=== PATIENT | female | born 1955 | race Caucasian/White ===

== ENCOUNTER → 2020-05-01 | Outpatient (CLI) | payer BC ==
--- NOTE | 2020-05-01 15:51 | KCIC ---
Examination: MRI of the left knee without contrast HISTORY: History of meniscal tear left knee COMPARISON: None available Technique: Multiplanar, multisequence MR imaging of the left knee was performed without contrast FINDINGS: The anterior cruciate ligament, posterior cruciate ligament appear intact. There is complex appearing tear of the posterior horn of the medial meniscus. There is horizontal increased signal identified in the anterior horn of the lateral meniscus extending to superior inferior articular surface likely tear with a small 4 mm parameniscal cyst extending laterally from the anterior horn of the lateral meniscus best visualized on series 8 image 17. The medial collateral ligament appears intact. There is mild increased T2 signal identified about the medial collateral ligament with the lateral collateral ligamentous complex appearing the fibular collateral ligament, biceps femoris tendon, popliteus tendon appear intact. The extensor mechanism is intact. Small knee joint effusion is identified. There is moderate trabecular edema identified in the medial tibial plateau with subtle low T1 signal and sagittal high T2 signal in the proximal medial tibia could be impaction nondisplaced fracture. The medial retinaculum, lateral retinaculum appears intact. Small popliteal cyst is identified. Moderate increased T2 signal/edema identified about the knee joint. IMPRESSION: 1. Complex tear of the posterior horn of the medial meniscus. 2. Horizontal increased signal identified in the anterior horn of the lateral meniscus extending to superior and inferior articular surface likely tear with a small 4 mm parameniscal cyst extending laterally from the anterior horn of the lateral meniscus best visualized on series 8 image 17. 3. Moderate trabecular edema identified in the medial tibial plateau with subtle low T1 signal and sagittal high T2 signal in the proximal medial tibia could be impaction nondisplaced fracture. 4. Increased T2 signal identified about the medial collateral ligament probably sprain or secondary to injury. 5. Small knee joint effusion with a small popliteal cyst. Electronically signed by: Federico Reed MD (05/01/2020 3:48 PM) [id number]
== END | disposition home or self-care (01) ==
LOC: KCIC MRI 14:40
PROVIDERS: ATTEND Physician Assistant
DX: S83.242D Other tear of medial meniscus, current injury, left knee, subsequent encounter (principal); M71.22 Synovial cyst of popliteal space [Baker], left knee; M25.462 Effusion, left knee; X58.XXXD Exposure to other specified factors, subsequent encounter
CPT/HCPCS: 73721

== ENCOUNTER → 2020-05-18 | Outpatient (CLI) | payer BC | END | disposition home or self-care (01) | LOC: LAB 14:12 | PROVIDERS: ATTEND Orthopaedic Surgery | DX: Z01.818 Encounter for other preprocedural examination (principal); Z11.59 Encounter for screening for other viral diseases | CPT/HCPCS: U0003-CS ==

== ENCOUNTER 2020-05-22 09:16 | Day surgery (SDC) | payer BC ==
[~2020-05-22] VITALS: Ht 152.4 cm; Wt 96.2 kg
[~2020-05-22 09:16] MED LIST: BUPIVACAINE MPF 0.25% 30 ML VIAL. ONE; EPINEPHrine VIAL 30 MG/30 ML VIAL ONE; HYDROmorphone 2 MG/ML VIAL IV PRN; IV RINGERS,LACTATED 1000ML 1,000 ML IV SCH; LIDOCAINE 1% PF 2 ML VIAL. ID PRN; MORPHINE SULFATE 2 MG/ML VIAL. IV PRN; ONDANSETRON PF 4 MG/2 ML VIAL. IV PRN; PROCHLORPERAZINE 10 MG/2 ML VIAL. IV PRN; fentaNYL PF VIAL 100 MCG/2 ML VIAL IV PRN
[2020-05-22] MEDS ORDERED: LISI-130 PO (09:18)
[2020-05-22] MEDS ORDERED: AMLO5TAB10 PO (09:19)
[2020-05-22] MEDS ORDERED: NAPR500T8 PO (09:19)
[2020-05-22] MEDS ORDERED: LIDOCAINE 1% PF 5 ML VIAL. ONE (09:20)
[2020-05-22] MEDS ORDERED: PROPOFOL 10 MG/ML (20ML) VIAL. IV ONE (09:20)
[2020-05-22] MEDS ORDERED: fentaNYL PF VIAL 100 MCG/2 ML VIAL ONE (09:21)
[2020-05-22] MEDS ORDERED: BUPIVACAINE-EPI 0.25%-1:200000 MPF 30 ML VIAL. ONE (09:58)
[2020-05-22] MEDS ORDERED: ceFAZolin 2GM PREMIX 2 GM/50 ML BAG IV ONE (10:00)
[2020-05-22] MEDS ORDERED: DEXAMETHASONE SOD PHOS 4 MG/ML VIAL ONE (10:11)
[2020-05-22] MEDS ORDERED: ONDANSETRON PF 4 MG/2 ML VIAL. ONE (10:11)
[2020-05-22] MEDS ORDERED: ePHEDrine PF IN SALINE 50 MG/10 ML SYRINGE. IV ONE (10:22)
[2020-05-22] MEDS ORDERED: SEVOFLURANE 61 TO 120 MINUTES. IH ONE (10:39)
[2020-05-22] MEDS ORDERED: PHENYLEPHRINE in 0.9% NACL PF 1 MG/10 ML SYRINGE. IV ONE (10:39)
--- NOTE | 2020-05-22 10:57 | PDOC4 ---
Operative Note Operative Note Date of Procedure: May 22, 2020 Preoperative Diagnosis: left knee medial and lateral meniscus tears Postoperative Diagnosis: * complex tear of lateral meniscus, current injury, left knee, initial encounter S83.272A * complex tear of medial meniscus, current injury, left knee, initial encounter S83.232A Procedures Performed: left knee arthroscopy, surgical, with meniscectomy, medial AND lateral, including meniscal shaving, including debridement/shaving of articular cartilage (chondroplasty) CPT 07861 Surgeon: José Miguel Crawford MD Nursing Admin: KATH Mtz Anesthesia: General Estimated Blood Loss: 5 mL Specimens: none Drains: none Complications: none Tourniquet time: 25 minutes at 300 mm Hg Indications for Procedure: The patient is a 64-year-old with left knee pain, unrelieved with nonoperative treatment. Exam and MRI are consistent with a meniscus tear. We talked about the risks and benefits of proceeding with an arthroscopic procedure. We talked about potential risks of ongoing pain, progressive arthritis, bleeding, infection, blood clots, or other potential surgical or anesthetic complications. All of the patient's questions about surgery were answered and they desired to proceed. Written consent was obtained. Description of Operation: The patient was identified in the preoperative holding area. The correct left knee was marked by me. The patient was taken to the operating room, where a general anesthetic was used. Preoperative antibiotics were given intravenously. A time-out procedure was performed. A tourniquet was placed on the upper thigh. Local anesthetic 20 mL of 0.25% bupivacaine was injected using sterile technique into the knee joint. The limb was prepared circumferentially with ChloraPrep solution and sterile waterproof arthroscopy drapes were applied. The limb was exsanguinated with an Esmarch bandage and the tourniquet was inflated. Lateral and medial arthroscopy portals were established. The medial meniscus showed a complex unrepairable tear with unstable flaps. A meniscectomy was performed with basket forceps and the motorized shaver back to a smooth stable base, and the resection tapered into the middle one-third of the meniscus.The medial tibiofemoral joint showed chondromalacia Outerbridge grade III, and a shaving chondroplasty was performed removing unstable fragments of cartilage with the shaver.The intercondylar notch was free of loose bodies, and the ACL was intact. The lateral tibiofemoral joint showed a complex unrepairable meniscus tear, and a meniscectomy was performed with basket forceps and the motorized shaver back to a smooth stable base.The lateral articular surfaces showed chondromalacia Outerbridge grade II, so a shaving chondroplasty was performed removing loose unstable fragments of articular cartilage. The patellofemoral joint showed chondromalacia Outerbridge grade III, and a shaving chondroplasty was performed removing unstable fragments of cartilage with the shaver. The suprapatellar pouch, medial and lateral gutters were free of loose bodies. Copious irrigation was used to drain all meniscal and chondral fragments, and the knee was drained of fluid. The portals were closed with #3-0 Prolene interrupted sutures. Additional local anesthetic, 30 mL of 0.25% bupivacaine with epinephrine was injected. A bulky sterile dressing was applied and the tourniquet was released. Needle and sponge counts were correct and there were no apparent complications. JOSÉ MIGUEL CRAWFORD MD May 22, 2020 10:57
[2020-05-22] MEDS ORDERED: HYDR-2765 PO (11:20)
[2020-05-22] MEDS ORDERED: PROM25TA10 PO (11:23)
[2020-05-22] MEDS ORDERED: ASPI325T8 PO (11:25)
[2020-05-22 11:49] VITALS: BP 149/82
== END 2020-05-22 13:43 | disposition home or self-care (01) ==
LOC: SURG 09:16
PROVIDERS: ATTEND Orthopaedic Surgery
DX: S83.272A Complex tear of lateral meniscus, current injury, left knee, initial encounter (principal); S83.232A Complex tear of medial meniscus, current injury, left knee, initial encounter; M17.12 Unilateral primary osteoarthritis, left knee; I10 Essential (primary) hypertension; E78.5 Hyperlipidemia, unspecified; E66.9 Obesity, unspecified; Z68.41 Body mass index [BMI] 40.0-44.9, adult; X58.XXXA Exposure to other specified factors, initial encounter; Y93.89 Activity, other specified; Y92.89 Other specified places as the place of occurrence of the external cause; Y99.8 Other external cause status; Z98.890 Other specified postprocedural states; Z79.899 Other long term (current) drug therapy
CPT/HCPCS: 29880; A7015; J0171; J0690; J1100; J2370; J2405; J2704; J3010; J3490

== ENCOUNTER 2020-06-02 06:43 | Inpatient (IN) | payer BC ==
[2020-06-02] VITALS (13 sets, daily range): BP systolic 103–154; BP diastolic 62–100
[~2020-06-02] VITALS: Ht 154.9 cm; Wt 95.0 kg
[~2020-06-02 06:43] MED LIST changes: +AMLO5TAB10 PO; +ASPI325T8 PO; -BUPIVACAINE MPF 0.25% 30 ML VIAL. ONE; -EPINEPHrine VIAL 30 MG/30 ML VIAL ONE; +HYDR-2765 PO; -HYDROmorphone 2 MG/ML VIAL IV PRN; -IV RINGERS,LACTATED 1000ML 1,000 ML IV SCH; -LIDOCAINE 1% PF 2 ML VIAL. ID PRN; +LISI-130 PO; -MORPHINE SULFATE 2 MG/ML VIAL. IV PRN; +NAPR500T8 PO; -ONDANSETRON PF 4 MG/2 ML VIAL. IV PRN; -PROCHLORPERAZINE 10 MG/2 ML VIAL. IV PRN; +PROM25TA10 PO; -fentaNYL PF VIAL 100 MCG/2 ML VIAL IV PRN
[2020-06-02] MEDS ORDERED: ZOLPIDEM 5 MG TABLET. PO PRN (08:15)
[2020-06-02] MEDS ORDERED: ALBUTEROL SULFATE 2.5 MG/3 ML NEBU. NEB PRN (08:15)
[2020-06-02] MEDS ORDERED: ONDANSETRON PF 4 MG/2 ML VIAL. IV PRN (08:15)
[2020-06-02] MEDS ORDERED: diphenhydrAMINE 50 MG/ML VIAL IVP PRN (08:15)
[2020-06-02] MEDS ORDERED: MAG HYDROX/ALUMINUM HYD/SIMETH 30 ML ORAL.SUSP PO PRN (08:15)
[2020-06-02] MEDS ORDERED: guaiFENesin ORAL 200 MG/10 ML LIQUID. PO PRN (08:15)
[2020-06-02] MEDS ORDERED: LORazepam 0.5 MG TABLET PO PRN (08:15)
[2020-06-02] MEDS ORDERED: ACETAMINOPHEN 325 MG TABLET. PO PRN (08:15)
--- NOTE | 2020-06-02 08:15 | PDOC1 ---
History and Physical Date of Admission Date of Admission 06/02/2020 Identification/Chief Complaint Chief Complaint My chest hurts Source Source: Chart review, Patient History of Present Illness History of Present Illness Patient is a 64-year-old female with past medical history of essential hypertension obesity who was in her usual state of health until earlier in the month when apparently she suffered a meniscal tear which was operated. She had a left knee arthroscopy with medial and lateral meniscectomy. This was on May 22, 2020. After her operation patient has been more sedentary than usual she has been taking aspirin nevertheless yesterday she presented right-sided chest pain under her breast which prompted consultation with the local emergency department. She was evaluated and found to have bilateral pulmonary emboli and sent to our institution for further treatment. The patient is in no acute distress she is not requiring oxygen at the present time she is able to speak in full sentences her chest discomfort does not seem to be as bothersome as her knee pain. She also has back pain but no alarming signs like weight loss no saddle anesthesia no paresthesias no signs of cauda equina. Plan of care has been explained in detail to the patient and her who is at bedside no other complaints other than her aches and pains. She denies any syncopal episodes no neurological deficits no dysphagia odynophagia no palpitations no lightheadedness no shortness of breath has been reported no abdominal pain no nausea vomiting or diarrhea Patient will be admitted for further evaluation and treatment Past Medical History Past Medical History No significant past medical history Past Surgical History Past Surgical History: Arthroscopy, No pertinent history (Arthroscopy) Family History Family History: No Significant Social History Smoke: No ALCOHOL: none Drugs: None Allergies Allergies Allergies Coded Allergies Type Severity Reaction Last Updated Verified No Known Drug Allergies 05/22/20 No ROS Review of System CONSTITUTIONAL: No fever or chills EYES: No recent changes SKIN: No rash or itching CARDIOVASCULAR: No chest pain, syncope, palpitations, or edema RESPIRATORY: No SOB or cough GASTROINTESTINAL: No nausea, vomiting or abdominal pain NEUROLOGICAL: No headaches or weakness ENDOCRINE: No cold or heat intolerance GENITOURINARY: No urgency or frequency of urination MUSCULOSKELETAL: No back pain or joint pain LYMPHATICS: No enlarged lymph nodes PSYCHIATRIC: No anxiety or depression Physical Exam Physical Exam GEN.: No apparent distress. Alert and oriented. HEENT: Head is normocephalic, atraumatic NECK: Supple. LUNGS: Clear to auscultation. HEART: RRR, S1, S2 present. Peripheral pulses intact ABDOMEN: Soft, nontender. Positive bowel sounds. EXTREMITIES: Without any cyanosis. NEUROLOGIC: Normal speech, normal tone PSYCHIATRIC: Normal affect, normal mood. SKIN: No ulcerations VTE Prophylaxis Ordered VTE Prophylaxis Devices: No VTE Pharmacological Prophylaxi: Yes Assessment/Plan Assessment/Plan Bilateral pulmonary emboli as per report, no imaging are available at the present time for review Chest pain pleuritic in nature secondary to pleural effusion Cannot rule out a an infectious process but given the quite benign history no cough no fever no sputum production very unlikely Obesity with a BMI of 39 Essential hypertension Uncontrolled pain Status post arthroscopy secondary to complex meningeal tear over the left knee Plan Pain management Resume home medication Echocardiogram to assess for right-sided heart strain Further recommendations will be based on the clinical course Full anticoagulation with Lovenox LIDIA GUIDO MD Jun 02, 2020 08:15
[2020-06-02] MEDS ORDERED: PROMETHAZINE 12.5 MG TABLET. PO PRN (08:30)
[2020-06-02] MEDS ORDERED: NAPROXEN 500 MG TABLET PO PRN (08:30)
[2020-06-02] MEDS: ASPIRIN 325 MG TABLET PO SCH (08:33)
[2020-06-02] MEDS: LISINOPRIL 20 MG TABLET PO SCH (08:33)
[2020-06-02] MEDS: HYDROmorphone 2 MG/ML VIAL IV PRN ×2 (08:34→18:27)
[2020-06-02] MEDS: amLODIPine BESYLATE 5 MG TABLET PO SCH (08:34)
[2020-06-02] MEDS ORDERED: ANTI-COAG MONITOR BY PHARMACY. MC PRN (11:00)
--- NOTE | 2020-06-02 12:27 | CONS ---
DATE OF CONSULTATION: 06/02/2020 PULMONARY CONSULTATION ATTENDING PHYSICIAN: Anselmo Murillo MD REASON FOR CONSULTATION: Pulmonary embolism and DVT. HISTORY OF PRESENT ILLNESS: The patient is a 64-year-old obese female who has no significant tobacco history. She had an arthroscopic surgery done about 2 weeks ago on 05/22. She stated a week later, she started to have pain in her right leg. She then had progression of pain and started to have shortness of breath and chest pain on the right side this weekend. She did not have any lightheadedness or dizziness. No syncopal episode. No headache, no nausea, vomiting, no diarrhea, and no dysuria. The patient had imaging study done yesterday, which was reviewed by me. The patient had bilateral pulmonary embolism including lobar and segmental branches bilaterally. There was sparing of main pulmonary trunk. There was airspace disease in the right lower lobe suggestive of infarction. She had no symptoms of pneumonia. The patient has no known cancers. She has been immobile since the surgery. Her mother had DVT and PE at an advanced age. I have been asked to see her for further evaluation. PAST MEDICAL HISTORY: Essentially unremarkable except for morbid obesity. PAST SURGICAL HISTORY: Arthroscopic surgery. FAMILY HISTORY: Mother had PE and DVT at her advanced age. SOCIAL HISTORY: Nonsmoker. ALLERGIES: None. MEDICATIONS: Reviewed as listed in the MRAD including Lovenox and Eliquis. REVIEW OF SYSTEMS: Twelve-point system obtained. Pertinent positives discussed in my history of present illness, otherwise noncontributory. All systems that were negative were reviewed as well. PHYSICAL EXAMINATION: VITAL SIGNS: Reviewed. Blood pressure is 103 to 116 systolic. Pulse ox 95% on 2 liters, afebrile. NECK: Supple. LUNGS: Clear. CARDIOVASCULAR: With a regular rate. ABDOMEN: Soft, nontender. EXTREMITIES: With surgical incision on the left knee and some pain and tender in the right knee. LABORATORY DATA: With Santana virus not detected. IMPRESSION: 1. Acute pulmonary embolism and right lower extremity deep vein thrombosis secondary to immobilization from recent left knee arthroscopic surgery. She has no known cancers and her obesity is another risk factor. Her mother had pulmonary embolism and DVT at an advanced age. She is hemodynamically stable. 2. Right lower lobe pulmonary infarction. Clinically, no signs of pneumonia. 3. Underlying morbid obesity. 4. No significant tobacco history. RECOMMENDATIONS: 1. Discussed with the patient and her . At this time, we will continue minimum of 3 months of anticoagulation. Her risk factors appears to be reversible. 2. Will repeat venous Dopplers and CTA chest in 6 weeks. 3. She can be switched to p.o. Eliquis, which she will be initiating from tomorrow. 4. 6-minute walk test at the time of discharge. 5. The patient has indicated a week from now she is scheduled to go somewhere in [place] for 3-hour drive. I have instructed her that as long as she takes a break every hour and stretches herself and remains on Eliquis she should be safe. 6. Discussed with RN. The patient could be transferred out of the ICU. YOLANDA RECIO MD DR: TERRY/randi JOB#: [id number] / [id number]
--- NOTE | 2020-06-02 12:35 | PDOC2 ---
CONSULT Date of Consult Date of Consult DATE: 06/02/20 TIME: 12:25 Reason for Consult Reason for Consult: Followup from Left Knee Arthroscopy with medial and lateral meniscectomy. on 05/22/2020 Referring Physician Referring Physician: Dr MONTERO Identification/Chief Complaint Chief Complaint No complaint of pain at this time in knee. Source Source: Caregiver, Chart review, Patient History of Present Illness Reason for Visit: Bilateral pulmonary emboli Past Medical History Pulmonary: Pulmonary embolus Musculoskeletal: Other (bilateral meniscus tears prior to arthroscopy) Past Surgical History Past Surgical History: Arthroscopy, No pertinent history (Arthroscopy) Family History Family History: No Significant Social History No ALCOHOL: none Drugs: None Current Medications Current Medications Current Medications Ondansetron HCl (Zofran) 4 mg PRN Q4HRS PRN IV NAUSEA/VOMITING; Start 06/02/20 at 08:15 Zolpidem Tartrate (Ambien) 5 mg PRN QHS PRN PO INSOMNIA; Start 06/02/20 at 08:15 Acetaminophen (Tylenol) 650 mg PRN Q4HRS PRN PO TEMP OVER 100.4F OR MILD PAIN; Start 06/02/20 at 08:15 Al Hydroxide/Mg Hydroxide (Mylanta Plus Xs) 30 ml PRN DAILY PRN PO HEARTBURN / GAS; Start 06/02/20 at 08:15 Diphenhydramine HCl (Benadryl) 25 mg PRN Q4HRS PRN IVP ITCHING; Start 06/02/20 at 08:15 Docusate Sodium (Colace) 100 mg PRN BID PRN PO HARD STOOLS; Start 06/02/20 at 08:15 Albuterol Sulfate (Ventolin Neb Soln) 2.5 mg PRN Q4HRS PRN NEB SHORTNESS OF BREATH; Start 06/02/20 at 08:15 Guaifenesin (Robitussin) 200 mg PRN Q4HRS PRN PO COUGH; Start 06/02/20 at 08:15 Lorazepam (Ativan) 0.5 mg PRN Q4HRS PRN PO ANXIETY / AGITATION; Start 06/02/20 at 08:15 Hydromorphone HCl (Dilaudid) 1 mg PRN Q2HRS PRN IV SEVERE PAIN 7-10 Last administered on 06/02/20at 08:34; Start 06/02/20 at 08:15 Enoxaparin Sodium (Lovenox 100mg Syringe) 100 mg Q12HR SQ Last administered on 06/02/20at 08:36; Start 06/02/20 at 09:00; Stop 06/02/20 at 10:43; Status DC Amlodipine Besylate (Norvasc) 5 mg DAILY PO Last administered on 06/02/20at 08:34; Start 06/02/20 at 09:00 Aspirin (Zara Aspirin) 325 mg DAILY PO Last administered on 06/02/20at 08:33; Start 06/02/20 at 09:00 Acetaminophen/ Hydrocodone Bitart (Lortab 7.5/325) 1 tab PRN Q6HRS PRN PO MODERATE PAIN; Start 06/02/20 at 08:15 Lisinopril (Prinivil) 40 mg DAILY PO Last administered on 06/02/20at 08:33; Start 06/02/20 at 09:00 Naproxen (Naprosyn) 500 mg PRN BID PRN PO INFLAMMATION; Start 06/02/20 at 08:30 Promethazine HCl (Phenergan) 25 mg PRN Q6HRS PRN PO NAUSEA/VOMITING; Start 06/02/20 at 08:30 Apixaban (Eliquis) 10 mg BID PO ; Start 06/03/20 at 21:00; Stop 06/10/20 at 09:01 Apixaban (Eliquis) 5 mg BID PO ; Start 06/10/20 at 21:00 Info (Anti-Coagulation Monitoring By Pharmacy) 1 each PRN DAILY PRN MC SEE COMMENTS; Start 06/02/20 at 11:00 Active Scripts Active Reported Aspirin 325 Mg Tablet 1 Tab PO DAILY 30 Days Promethazine Hcl 25 Mg Tablet 1 Tab PO PRN Q6HRS 2 Days Hydrocodone-Apap 7.5-325 (Hydrocodone Bit/Acetaminophen) 1 Tab Tablet 1-2 Tab PO PRN Q6HRS PRN Naproxen 500 Mg Tablet. 1 Tab PO PRN 1-2XD PRN Amlodipine Besylate 5 Mg Tablet 5 Mg PO DAILY Lisinopril 40 Mg Tablet 40 Mg PO DAILY Allergies Allergies: Coded Allergies: No Known Drug Allergies (Unverified , 05/22/20) Physical Exam General: Alert, Oriented X3, Cooperative, No acute distress Extremities: No clubbing, No cyanosis, Normal pulses MUSCULOSKELETAL: Other (sutures in place from wound closure from arthroscopy, mild swelling around the incision sites with no redness or erythema or drainage.) Vitals VITALS Vital Signs Date Time Temp Pulse Resp B/P (MAP) Pulse Ox O2 Delivery O2 Flow Rate FiO2 06/02/20 11:00 74 21 103/63 (76) 95 Nasal Cannula 2.0 06/02/20 07:00 99.7 99.7 Assessment/Plan Assessment/Plan Patient postop from Left Knee Arthroscopy on 05/22/[address] Crawford motor and sensation intact distally no complaints of pain at this time RN will remove sutures and place dressing as patient had office appt scheduled tomorrow. PT eval and treat. Icing and elevation of knee as needed. VIVEK NO DELINQUENCY COUNSELOR Jun 02, 2020 12:35
[2020-06-02 14:56] LABS: CREATININE 0.9 mg/dL (0.6-1.0); GFR 63.4; MAGNESIUM 2.1 mg/dL (1.8-2.4); POTASSIUM 3.9 mmol/L (3.5-5.1)
--- NOTE | 2020-06-02 15:21 | NUR ---
SS following for discharge planning. SS reviewed pt chart and discussed with pt RN. Pt is from home with spouse and is currently requiring oxygen. Pt has multiple PE's. SS will continue to follow for discharge planning.
[2020-06-02] MEDS: HYDROcodone/APAP 7.5/325MG 1 TAB TABLET PO PRN (21:56)
[2020-06-03 03:25] VITALS: BP 116/81
[2020-06-03 04:47] LABS: BASO % 0 % (0-3); EOS # 0.1 x10^3/uL (0.0-0.7); EOS % 1 % (0-3); HEMATOCRIT 31.2 % (36.0-47.0); HEMOGLOBIN 10.6 g/dL (12.0-15.5); LYMPH % 19 % (24-48); MEAN CORPUSCULAR HEMOGLOBIN 32 pg (25-35); MEAN CORPUSCULAR HGB CONC 34 g/dL (31-37); MEAN CORPUSCULAR VOLUME 93 fL (79-100); MONO # 1.2 x10^3/uL (0.0-1.1); MONO % 12 % (0-9); NEUT # 6.9 x10^3/uL (1.8-7.7); NEUT % 67 % (31-73); PLATELET COUNT 271 x10^3/uL (140-400); RED BLOOD COUNT 3.36 x10^6/uL (3.50-5.40); RED CELL DISTRIBUTION WIDTH 13.4 % (11.5-14.5); WHITE BLOOD COUNT 10.3 x10^3/uL (4.0-11.0)
[2020-06-03 05:01] LABS: CALCIUM 8.8 mg/dL (8.5-10.1); CREATININE 0.9 mg/dL (0.6-1.0); GFR 63.4; POTASSIUM 3.7 mmol/L (3.5-5.1)
[2020-06-03 07:00] VITALS: BP 153/84
[2020-06-03] MEDS: APIXABAN 5 MG TABLET. PO SCH ×2 (08:19→20:47)
[2020-06-03] MEDS: LISINOPRIL 20 MG TABLET PO SCH (08:20)
[2020-06-03] MEDS: ASPIRIN 325 MG TABLET PO SCH (08:20)
[2020-06-03] MEDS: DOCUSATE SODIUM 100 MG CAPSULE. PO PRN ×2 (08:20→20:47)
[2020-06-03] MEDS: amLODIPine BESYLATE 5 MG TABLET PO SCH (08:20)
[2020-06-03] MEDS: HYDROcodone/APAP 7.5/325MG 1 TAB TABLET PO PRN ×2 (08:36→20:47)
--- NOTE | 2020-06-03 08:55 | PDOC ---
PULMONARY PROGRESS NOTES DATE: 06/03/20 TIME: 08:52 Subjective PT. remains on room air No CP, No increased cough, No SOB No overnight concerns from nursing Vitals Vital Signs Date Time Temp Pulse Resp B/P (MAP) Pulse Ox O2 Delivery O2 Flow Rate FiO2 06/03/20 08:36 95 Room Air 2.0 06/03/20 08:20 86 116/81 06/03/20 07:00 99.4 20 99.4 ROS: No Nausea, No Chest Pain, No Abdominal Pain, No Increase Cough General: Alert, Oriented X4 Lungs: Clear Cardiovascular: S1, S2 Abdomen: Soft, Non-tender Neuro Exam: Alert Extremities: No Edema Skin: Warm Labs Laboratory Tests Test 06/02/20 14:35 06/03/20 04:10 Sodium Level 140 mmol/L (136-145) 139 mmol/L (136-145) Potassium Level 3.9 mmol/L (3.5-5.1) 3.7 mmol/L (3.5-5.1) Chloride Level 104 mmol/L (98-107) 103 mmol/L (98-107) Carbon Dioxide Level 27 mmol/L (21-32) 28 mmol/L (21-32) Anion Gap 9 (6-14) 8 (6-14) Blood Urea Nitrogen 15 mg/dL (7-20) 13 mg/dL (7-20) Creatinine 0.9 mg/dL (0.6-1.0) 0.9 mg/dL (0.6-1.0) Estimated GFR (Cockcroft-Gault) 63.4 63.4 Glucose Level 108 mg/dL (70-99) 92 mg/dL (70-99) Calcium Level 9.0 mg/dL (8.5-10.1) 8.8 mg/dL (8.5-10.1) Magnesium Level 2.1 mg/dL (1.8-2.4) White Blood Count 10.3 x10^3/uL (4.0-11.0) Red Blood Count 3.36 x10^6/uL (3.50-5.40) Hemoglobin 10.6 g/dL (12.0-15.5) Hematocrit 31.2 % (36.0-47.0) Mean Corpuscular Volume 93 fL (79-100) Mean Corpuscular Hemoglobin 32 pg (25-35) Mean Corpuscular Hemoglobin Concent 34 g/dL (31-37) Red Cell Distribution Width 13.4 % (11.5-14.5) Platelet Count 271 x10^3/uL (140-400) Neutrophils (%) (Auto) 67 % (31-73) Lymphocytes (%) (Auto) 19 % (24-48) Monocytes (%) (Auto) 12 % (0-9) Eosinophils (%) (Auto) 1 % (0-3) Basophils (%) (Auto) 0 % (0-3) Neutrophils # (Auto) 6.9 x10^3/uL (1.8-7.7) Lymphocytes # (Auto) 2.0 x10^3/uL (1.0-4.8) Monocytes # (Auto) 1.2 x10^3/uL (0.0-1.1) Eosinophils # (Auto) 0.1 x10^3/uL (0.0-0.7) Basophils # (Auto) 0.0 x10^3/uL (0.0-0.2) Laboratory Tests Test 06/02/20 14:35 06/03/20 04:10 Sodium Level 140 mmol/L (136-145) 139 mmol/L (136-145) Potassium Level 3.9 mmol/L (3.5-5.1) 3.7 mmol/L (3.5-5.1) Chloride Level 104 mmol/L (98-107) 103 mmol/L (98-107) Carbon Dioxide Level 27 mmol/L (21-32) 28 mmol/L (21-32) Anion Gap 9 (6-14) 8 (6-14) Blood Urea Nitrogen 15 mg/dL (7-20) 13 mg/dL (7-20) Creatinine 0.9 mg/dL (0.6-1.0) 0.9 mg/dL (0.6-1.0) Estimated GFR (Cockcroft-Gault) 63.4 63.4 Glucose Level 108 mg/dL (70-99) 92 mg/dL (70-99) Calcium Level 9.0 mg/dL (8.5-10.1) 8.8 mg/dL (8.5-10.1) Magnesium Level 2.1 mg/dL (1.8-2.4) White Blood Count 10.3 x10^3/uL (4.0-11.0) Red Blood Count 3.36 x10^6/uL (3.50-5.40) Hemoglobin 10.6 g/dL (12.0-15.5) Hematocrit 31.2 % (36.0-47.0) Mean Corpuscular Volume 93 fL (79-100) Mean Corpuscular Hemoglobin 32 pg (25-35) Mean Corpuscular Hemoglobin Concent 34 g/dL (31-37) Red Cell Distribution Width 13.4 % (11.5-14.5) Platelet Count 271 x10^3/uL (140-400) Neutrophils (%) (Auto) 67 % (31-73) Lymphocytes (%) (Auto) 19 % (24-48) Monocytes (%) (Auto) 12 % (0-9) Eosinophils (%) (Auto) 1 % (0-3) Basophils (%) (Auto) 0 % (0-3) Neutrophils # (Auto) 6.9 x10^3/uL (1.8-7.7) Lymphocytes # (Auto) 2.0 x10^3/uL (1.0-4.8) Monocytes # (Auto) 1.2 x10^3/uL (0.0-1.1) Eosinophils # (Auto) 0.1 x10^3/uL (0.0-0.7) Basophils # (Auto) 0.0 x10^3/uL (0.0-0.2) Medications Active Scripts Medications Dose Route/Sig Max Daily Dose Days Date Category Aspirin 325 Mg Tablet 1 Tab PO DAILY 30 05/22/20 Reported Promethazine Hcl 25 Mg Tablet 1 Tab PO PRN Q6HRS 2 05/22/20 Reported Hydrocodone-Apap 7.5-325 (Hydrocodone Bit/Acetaminophen) 1 Tab Tablet 1-2 Tab PO PRN Q6HRS PRN 05/22/20 Reported Naproxen 500 Mg Tablet.dr 1 Tab PO PRN 1-2XD PRN 05/22/20 Reported Amlodipine Besylate 5 Mg Tablet 5 Mg PO DAILY 05/22/20 Reported Lisinopril 40 Mg Tablet 40 Mg PO DAILY 05/22/20 Reported Impression . IMPRESSION: 1. Acute pulmonary embolism and right lower extremity deep vein thrombosis secondary to immobilization from recent left knee arthroscopic surgery. She has no known cancers and her obesity is another risk factor. Her mother had pulmonary embolism and DVT at an advanced age. She is hemodynamically stable. 2. Right lower lobe pulmonary infarction. Clinically, no signs of pneumonia. 3. Underlying morbid obesity. 4. No significant tobacco history. Plan . RECOMMENDATIONS: Continue supplemental oxygen to keep sats above 92% . Will repeat venous Dopplers and CTA chest in 6 weeks. Continue Eliquis, for 3- 6 months 6-minute walk test at the time of discharge. The patient has indicated a week from now she is scheduled to go somewhere in [place] for 3-hour drive. I have instructed her that as long as she takes a break every hour and stretches herself and remains on Eliquis she should be safe. Discussed with RN. ambulate YOLANDA RECIO MD Jun 03, 2020 08:55
[2020-06-03 11:00] VITALS: BP 109/65
[2020-06-03 15:00] VITALS: BP 112/67
--- NOTE | 2020-06-03 17:19 | PDOC ---
PROGRESS NOTES Date of Service: DATE: 06/03/20 TIME: 17:10 Chief Complaint Chief Complaint Shortness of breath History of Present Illness History of Present Illness Patient evaluated at bedside. She states she still has some shortness of breath, mostly when she ambulates but none at rest. Her pleuritic chest pain is improving. We discussed possible discharge with home oxygen and oral anticoagulation, however I did mention I would prefer if she was on room air when it comes time to discharge. Vitals Vitals Vital Signs Date Time Temp Pulse Resp B/P (MAP) Pulse Ox O2 Delivery O2 Flow Rate FiO2 06/03/20 15:00 98.2 80 20 112/67 (82) 94 Nasal Cannula 2.0 98.2 Physical Exam General: Alert, Oriented X3, Cooperative, No acute distress Heart: Regular rate, Normal S1, Normal S2 Lungs: Crackles Extremities: No clubbing, No cyanosis, Normal pulses Skin: No rashes Labs LABS Laboratory Tests Test 06/03/20 04:10 White Blood Count 10.3 x10^3/uL (4.0-11.0) Red Blood Count 3.36 x10^6/uL (3.50-5.40) Hemoglobin 10.6 g/dL (12.0-15.5) Hematocrit 31.2 % (36.0-47.0) Mean Corpuscular Volume 93 fL (79-100) Mean Corpuscular Hemoglobin 32 pg (25-35) Mean Corpuscular Hemoglobin Concent 34 g/dL (31-37) Red Cell Distribution Width 13.4 % (11.5-14.5) Platelet Count 271 x10^3/uL (140-400) Neutrophils (%) (Auto) 67 % (31-73) Lymphocytes (%) (Auto) 19 % (24-48) Monocytes (%) (Auto) 12 % (0-9) Eosinophils (%) (Auto) 1 % (0-3) Basophils (%) (Auto) 0 % (0-3) Neutrophils # (Auto) 6.9 x10^3/uL (1.8-7.7) Lymphocytes # (Auto) 2.0 x10^3/uL (1.0-4.8) Monocytes # (Auto) 1.2 x10^3/uL (0.0-1.1) Eosinophils # (Auto) 0.1 x10^3/uL (0.0-0.7) Basophils # (Auto) 0.0 x10^3/uL (0.0-0.2) Sodium Level 139 mmol/L (136-145) Potassium Level 3.7 mmol/L (3.5-5.1) Chloride Level 103 mmol/L (98-107) Carbon Dioxide Level 28 mmol/L (21-32) Anion Gap 8 (6-14) Blood Urea Nitrogen 13 mg/dL (7-20) Creatinine 0.9 mg/dL (0.6-1.0) Estimated GFR (Cockcroft-Gault) 63.4 Glucose Level 92 mg/dL (70-99) Calcium Level 8.8 mg/dL (8.5-10.1) Review of Systems Review of Systems Pleuritic chest pain, shortness of breath. Denies fever, denies hemoptysis. Assessment and Plan Assessmemt and Plan Plan: Patient currently breathing on 2 L of oxygen. Can discharge her with home oxygen and oral anticoagulation for period of at least 3 months, pending insurance approval. Discussed regular ambulation. Comment Review of Relevant I have reviewed the following items kodak (where applicable) has been applied. Labs Laboratory Tests Test 06/02/20 14:35 06/03/20 04:10 Sodium Level 140 mmol/L (136-145) 139 mmol/L (136-145) Potassium Level 3.9 mmol/L (3.5-5.1) 3.7 mmol/L (3.5-5.1) Chloride Level 104 mmol/L (98-107) 103 mmol/L (98-107) Carbon Dioxide Level 27 mmol/L (21-32) 28 mmol/L (21-32) Anion Gap 9 (6-14) 8 (6-14) Blood Urea Nitrogen 15 mg/dL (7-20) 13 mg/dL (7-20) Creatinine 0.9 mg/dL (0.6-1.0) 0.9 mg/dL (0.6-1.0) Estimated GFR (Cockcroft-Gault) 63.4 63.4 Glucose Level 108 mg/dL (70-99) 92 mg/dL (70-99) Calcium Level 9.0 mg/dL (8.5-10.1) 8.8 mg/dL (8.5-10.1) Magnesium Level 2.1 mg/dL (1.8-2.4) White Blood Count 10.3 x10^3/uL (4.0-11.0) Red Blood Count 3.36 x10^6/uL (3.50-5.40) Hemoglobin 10.6 g/dL (12.0-15.5) Hematocrit 31.2 % (36.0-47.0) Mean Corpuscular Volume 93 fL (79-100) Mean Corpuscular Hemoglobin 32 pg (25-35) Mean Corpuscular Hemoglobin Concent 34 g/dL (31-37) Red Cell Distribution Width 13.4 % (11.5-14.5) Platelet Count 271 x10^3/uL (140-400) Neutrophils (%) (Auto) 67 % (31-73) Lymphocytes (%) (Auto) 19 % (24-48) Monocytes (%) (Auto) 12 % (0-9) Eosinophils (%) (Auto) 1 % (0-3) Basophils (%) (Auto) 0 % (0-3) Neutrophils # (Auto) 6.9 x10^3/uL (1.8-7.7) Lymphocytes # (Auto) 2.0 x10^3/uL (1.0-4.8) Monocytes # (Auto) 1.2 x10^3/uL (0.0-1.1) Eosinophils # (Auto) 0.1 x10^3/uL (0.0-0.7) Basophils # (Auto) 0.0 x10^3/uL (0.0-0.2) Laboratory Tests Test 06/03/20 04:10 White Blood Count 10.3 x10^3/uL (4.0-11.0) Red Blood Count 3.36 x10^6/uL (3.50-5.40) Hemoglobin 10.6 g/dL (12.0-15.5) Hematocrit 31.2 % (36.0-47.0) Mean Corpuscular Volume 93 fL (79-100) Mean Corpuscular Hemoglobin 32 pg (25-35) Mean Corpuscular Hemoglobin Concent 34 g/dL (31-37) Red Cell Distribution Width 13.4 % (11.5-14.5) Platelet Count 271 x10^3/uL (140-400) Neutrophils (%) (Auto) 67 % (31-73) Lymphocytes (%) (Auto) 19 % (24-48) Monocytes (%) (Auto) 12 % (0-9) Eosinophils (%) (Auto) 1 % (0-3) Basophils (%) (Auto) 0 % (0-3) Neutrophils # (Auto) 6.9 x10^3/uL (1.8-7.7) Lymphocytes # (Auto) 2.0 x10^3/uL (1.0-4.8) Monocytes # (Auto) 1.2 x10^3/uL (0.0-1.1) Eosinophils # (Auto) 0.1 x10^3/uL (0.0-0.7) Basophils # (Auto) 0.0 x10^3/uL (0.0-0.2) Sodium Level 139 mmol/L (136-145) Potassium Level 3.7 mmol/L (3.5-5.1) Chloride Level 103 mmol/L (98-107) Carbon Dioxide Level 28 mmol/L (21-32) Anion Gap 8 (6-14) Blood Urea Nitrogen 13 mg/dL (7-20) Creatinine 0.9 mg/dL (0.6-1.0) Estimated GFR (Cockcroft-Gault) 63.4 Glucose Level 92 mg/dL (70-99) Calcium Level 8.8 mg/dL (8.5-10.1) Medications Current Medications Ondansetron HCl (Zofran) 4 mg PRN Q4HRS PRN IV NAUSEA/VOMITING; Start 06/02/20 at 08:15 Zolpidem Tartrate (Ambien) 5 mg PRN QHS PRN PO INSOMNIA; Start 06/02/20 at 08:15 Acetaminophen (Tylenol) 650 mg PRN Q4HRS PRN PO TEMP OVER 100.4F OR MILD PAIN; Start 06/02/20 at 08:15 Al Hydroxide/Mg Hydroxide (Mylanta Plus Xs) 30 ml PRN DAILY PRN PO HEARTBURN / GAS; Start 06/02/20 at 08:15 Diphenhydramine HCl (Benadryl) 25 mg PRN Q4HRS PRN IVP ITCHING; Start 06/02/20 at 08:15 Docusate Sodium (Colace) 100 mg PRN BID PRN PO HARD STOOLS Last administered on 06/03/20at 08:20; Start 06/02/20 at 08:15 Albuterol Sulfate (Ventolin Neb Soln) 2.5 mg PRN Q4HRS PRN NEB SHORTNESS OF BREATH Last administered on 06/02/20at 12:36; Start 06/02/20 at 08:15 Guaifenesin (Robitussin) 200 mg PRN Q4HRS PRN PO COUGH; Start 06/02/20 at 08:15 Lorazepam (Ativan) 0.5 mg PRN Q4HRS PRN PO ANXIETY / AGITATION; Start 06/02/20 at 08:15 Hydromorphone HCl (Dilaudid) 1 mg PRN Q2HRS PRN IV SEVERE PAIN 7-10 Last administered on 06/02/20at 18:27; Start 06/02/20 at 08:15 Enoxaparin Sodium (Lovenox 100mg Syringe) 100 mg Q12HR SQ Last administered on 06/02/20at 08:36; Start 06/02/20 at 09:00; Stop 06/02/20 at 10:43; Status DC Amlodipine Besylate (Norvasc) 5 mg DAILY PO Last administered on 06/03/20at 08 :20; Start 06/02/20 at 09:00 Aspirin (Zara Aspirin) 325 mg DAILY PO Last administered on 06/03/20at 08:20; Start 06/02/20 at 09:00; Stop 06/03/20 at 17:00; Status DC Acetaminophen/ Hydrocodone Bitart (Lortab 7.5/325) 1 tab PRN Q6HRS PRN PO MODERATE PAIN Last administered on 06/03/20at 08:36; Start 06/02/20 at 08:15 Lisinopril (Prinivil) 40 mg DAILY PO Last administered on 06/03/20at 08:20; Start 06/02/20 at 09:00 Naproxen (Naprosyn) 500 mg PRN BID PRN PO INFLAMMATION; Start 06/02/20 at 08:30 Promethazine HCl (Phenergan) 25 mg PRN Q6HRS PRN PO NAUSEA/VOMITING; Start 06/02/20 at 08:30 Apixaban (Eliquis) 10 mg BID PO Last administered on 06/03/20at 08:19; Start 06/03/20 at 09:00; Stop 06/09/20 at 21:01 Apixaban (Eliquis) 5 mg BID PO ; Start 06/10/20 at 09:00 Info (Anti-Coagulation Monitoring By Pharmacy) 1 each PRN DAILY PRN MC SEE COMMENTS Last administered on 06/03/20at 11:37; Start 06/02/20 at 11:00 Active Scripts Active Reported Aspirin 325 Mg Tablet 1 Tab PO DAILY 30 Days Promethazine Hcl 25 Mg Tablet 1 Tab PO PRN Q6HRS 2 Days Hydrocodone-Apap 7.5-325 (Hydrocodone Bit/Acetaminophen) 1 Tab Tablet 1-2 Tab PO PRN Q6HRS PRN Naproxen 500 Mg Tablet. 1 Tab PO PRN 1-2XD PRN Amlodipine Besylate 5 Mg Tablet 5 Mg PO DAILY Lisinopril 40 Mg Tablet 40 Mg PO DAILY Vitals/I & O Vital Sign - Last 24 Hours 06/02/20 06/02/20 06/02/20 06/02/20 18:05 18:27 18:57 19:05 Temp 99.6 98.3 99.6 98.3 Pulse 98 90 Resp 18 B/P (MAP) 130/80 (97) 122/62 (82) Pulse Ox 93 92 92 92 O2 Delivery Nasal Cannula Nasal Cannula Room Air Nasal Cannula O2 Flow Rate 2.0 2.0 2.0 2.0 06/02/20 06/02/20 06/02/20 06/02/20 20:00 21:56 22:56 23:20 Temp 98.2 98.2 Pulse 91 Resp 18 B/P (MAP) 125/84 (98) Pulse Ox 92 92 93 O2 Delivery Room Air Room Air Nasal Cannula Nasal Cannula O2 Flow Rate 2.0 2.0 2.0 2.0 06/03/20 06/03/20 06/03/20 06/03/20 03:25 07:00 08:00 08:20 Temp 98.1 99.4 98.1 99.4 Pulse 86 89 86 Resp 20 20 B/P (MAP) 116/81 (93) 153/84 (107) 116/81 Pulse Ox 95 92 O2 Delivery Nasal Cannula Nasal Cannula Nasal Cannula O2 Flow Rate 2.0 2.0 2.0 06/03/20 06/03/20 06/03/20 06/03/20 08:20 08:36 09:36 11:00 Temp 98.0 98.0 Pulse 86 79 Resp 20 B/P (MAP) 116/81 109/65 (80) Pulse Ox 95 95 94 O2 Delivery Room Air Nasal Cannula Nasal Cannula O2 Flow Rate 2.0 2.0 2.0 06/03/20 15:00 Temp 98.2 98.2 Pulse 80 Resp 20 B/P (MAP) 112/67 (82) Pulse Ox 94 O2 Delivery Nasal Cannula O2 Flow Rate 2.0 Intake and Output 06/02/20 06/02/20 06/03/20 14:59 22:59 06:59 Intake Total 0 ml 0 ml 300 ml Output Total 250 ml 200 ml Balance -250 ml 0 ml 100 ml Justicifation of Admission Dx: Justifications for Admission: Justification of Admission Dx: Yes Comments: Bilateral PE, with oxygen requirement. MARCELLUS BLACKMON MD Jun 03, 2020 17:19
[2020-06-03 19:00] VITALS: BP 129/80
[2020-06-03 22:49] VITALS: BP 115/77
[2020-06-04 02:46] VITALS: BP 127/81
[2020-06-04 07:00] VITALS: BP 152/85
[2020-06-04] MEDS: APIXABAN 5 MG TABLET. PO SCH (08:26)
[2020-06-04] MEDS: DOCUSATE SODIUM 100 MG CAPSULE. PO PRN (08:26)
[2020-06-04] MEDS: LISINOPRIL 20 MG TABLET PO SCH (08:26)
[2020-06-04] MEDS: amLODIPine BESYLATE 5 MG TABLET PO SCH (08:27)
[2020-06-04] MEDS ORDERED: POLYETHYLENE GLYCOL 3350 17 GM PACKET. PO PRN (09:30)
--- NOTE | 2020-06-04 10:27 | PDOC ---
PULMONARY PROGRESS NOTES DATE: 06/04/20 TIME: 10:24 Subjective PT. remains on room air No CP, No increased cough, No SOB No overnight concerns from nursing Vitals Vital Signs Date Time Temp Pulse Resp B/P (MAP) Pulse Ox O2 Delivery O2 Flow Rate FiO2 06/04/20 08:27 86 152/85 06/04/20 07:35 Nasal Cannula 2.0 06/04/20 07:00 98.3 18 93 98.3 ROS: No Nausea, No Chest Pain, No Abdominal Pain, No Increase Cough General: Alert, Oriented X4 Lungs: Crackles Cardiovascular: S1, S2 Abdomen: Soft, Non-tender Neuro Exam: Alert Extremities: No Edema Skin: Warm Labs Laboratory Tests Test 06/02/20 14:35 06/03/20 04:10 Sodium Level 140 mmol/L (136-145) 139 mmol/L (136-145) Potassium Level 3.9 mmol/L (3.5-5.1) 3.7 mmol/L (3.5-5.1) Chloride Level 104 mmol/L (98-107) 103 mmol/L (98-107) Carbon Dioxide Level 27 mmol/L (21-32) 28 mmol/L (21-32) Anion Gap 9 (6-14) 8 (6-14) Blood Urea Nitrogen 15 mg/dL (7-20) 13 mg/dL (7-20) Creatinine 0.9 mg/dL (0.6-1.0) 0.9 mg/dL (0.6-1.0) Estimated GFR (Cockcroft-Gault) 63.4 63.4 Glucose Level 108 mg/dL (70-99) 92 mg/dL (70-99) Calcium Level 9.0 mg/dL (8.5-10.1) 8.8 mg/dL (8.5-10.1) Magnesium Level 2.1 mg/dL (1.8-2.4) White Blood Count 10.3 x10^3/uL (4.0-11.0) Red Blood Count 3.36 x10^6/uL (3.50-5.40) Hemoglobin 10.6 g/dL (12.0-15.5) Hematocrit 31.2 % (36.0-47.0) Mean Corpuscular Volume 93 fL (79-100) Mean Corpuscular Hemoglobin 32 pg (25-35) Mean Corpuscular Hemoglobin Concent 34 g/dL (31-37) Red Cell Distribution Width 13.4 % (11.5-14.5) Platelet Count 271 x10^3/uL (140-400) Neutrophils (%) (Auto) 67 % (31-73) Lymphocytes (%) (Auto) 19 % (24-48) Monocytes (%) (Auto) 12 % (0-9) Eosinophils (%) (Auto) 1 % (0-3) Basophils (%) (Auto) 0 % (0-3) Neutrophils # (Auto) 6.9 x10^3/uL (1.8-7.7) Lymphocytes # (Auto) 2.0 x10^3/uL (1.0-4.8) Monocytes # (Auto) 1.2 x10^3/uL (0.0-1.1) Eosinophils # (Auto) 0.1 x10^3/uL (0.0-0.7) Basophils # (Auto) 0.0 x10^3/uL (0.0-0.2) Medications Active Scripts Medications Dose Route/Sig Max Daily Dose Days Date Category Aspirin 325 Mg Tablet 1 Tab PO DAILY 30 05/22/20 Reported Promethazine Hcl 25 Mg Tablet 1 Tab PO PRN Q6HRS 2 05/22/20 Reported Hydrocodone-Apap 7.5-325 (Hydrocodone Bit/Acetaminophen) 1 Tab Tablet 1-2 Tab PO PRN Q6HRS PRN 05/22/20 Reported Naproxen 500 Mg Tablet. 1 Tab PO PRN 1-2XD PRN 05/22/20 Reported Amlodipine Besylate 5 Mg Tablet 5 Mg PO DAILY 05/22/20 Reported Lisinopril 40 Mg Tablet 40 Mg PO DAILY 05/22/20 Reported Impression . IMPRESSION: 1. Acute pulmonary embolism and right lower extremity deep vein thrombosis secondary to immobilization from recent left knee arthroscopic surgery. She has no known cancers and her obesity is another risk factor. Her mother had pulmonary embolism and DVT at an advanced age. She is hemodynamically stable. 2. Right lower lobe pulmonary infarction. Clinically, no signs of pneumonia. 3. Underlying morbid obesity. 4. No significant tobacco history. Plan . RECOMMENDATIONS: Clinically improved, now on room air repeat venous Dopplers and CTA chest in 6 weeks, follow with us in office in July/ early August, this has been arranged with our office Continue Eliquis, for 3- 6 months 6-minute walk test completed, doesn't need home oxygen PT evaluation completed cleared for D/C home today The patient has indicated a week from now she is scheduled to go somewhere in [place] for 3-[address]. I have instructed her that as long as she takes a break every hour and stretches herself and remains on Eliquis she should be safe. Discussed with RN. Ok to D/C home today from our stand point YOLANDA RECIO MD Jun 04, 2020 10:27
--- NOTE | 2020-06-04 10:28 | PDOC ---
PULMONARY PROGRESS NOTES DATE: 06/04/20 TIME: 10:26 Subjective PT. remains on room air No CP, No increased cough, No SOB No overnight concerns from nursing Vitals Vital Signs Date Time Temp Pulse Resp B/P (MAP) Pulse Ox O2 Delivery O2 Flow Rate FiO2 06/04/20 08:27 86 152/85 06/04/20 07:35 Nasal Cannula 2.0 06/04/20 07:00 98.3 18 93 98.3 ROS: No Nausea, No Chest Pain, No Abdominal Pain, No Increase Cough General: Alert, Oriented X4 Lungs: Crackles Cardiovascular: S1, S2 Abdomen: Soft, Non-tender Neuro Exam: Alert Extremities: No Edema Skin: Warm Labs Laboratory Tests Test 06/02/20 14:35 06/03/20 04:10 Sodium Level 140 mmol/L (136-145) 139 mmol/L (136-145) Potassium Level 3.9 mmol/L (3.5-5.1) 3.7 mmol/L (3.5-5.1) Chloride Level 104 mmol/L (98-107) 103 mmol/L (98-107) Carbon Dioxide Level 27 mmol/L (21-32) 28 mmol/L (21-32) Anion Gap 9 (6-14) 8 (6-14) Blood Urea Nitrogen 15 mg/dL (7-20) 13 mg/dL (7-20) Creatinine 0.9 mg/dL (0.6-1.0) 0.9 mg/dL (0.6-1.0) Estimated GFR (Cockcroft-Gault) 63.4 63.4 Glucose Level 108 mg/dL (70-99) 92 mg/dL (70-99) Calcium Level 9.0 mg/dL (8.5-10.1) 8.8 mg/dL (8.5-10.1) Magnesium Level 2.1 mg/dL (1.8-2.4) White Blood Count 10.3 x10^3/uL (4.0-11.0) Red Blood Count 3.36 x10^6/uL (3.50-5.40) Hemoglobin 10.6 g/dL (12.0-15.5) Hematocrit 31.2 % (36.0-47.0) Mean Corpuscular Volume 93 fL (79-100) Mean Corpuscular Hemoglobin 32 pg (25-35) Mean Corpuscular Hemoglobin Concent 34 g/dL (31-37) Red Cell Distribution Width 13.4 % (11.5-14.5) Platelet Count 271 x10^3/uL (140-400) Neutrophils (%) (Auto) 67 % (31-73) Lymphocytes (%) (Auto) 19 % (24-48) Monocytes (%) (Auto) 12 % (0-9) Eosinophils (%) (Auto) 1 % (0-3) Basophils (%) (Auto) 0 % (0-3) Neutrophils # (Auto) 6.9 x10^3/uL (1.8-7.7) Lymphocytes # (Auto) 2.0 x10^3/uL (1.0-4.8) Monocytes # (Auto) 1.2 x10^3/uL (0.0-1.1) Eosinophils # (Auto) 0.1 x10^3/uL (0.0-0.7) Basophils # (Auto) 0.0 x10^3/uL (0.0-0.2) Medications Active Scripts Medications Dose Route/Sig Max Daily Dose Days Date Category Aspirin 325 Mg Tablet 1 Tab PO DAILY 30 05/22/20 Reported Promethazine Hcl 25 Mg Tablet 1 Tab PO PRN Q6HRS 2 05/22/20 Reported Hydrocodone-Apap 7.5-325 (Hydrocodone Bit/Acetaminophen) 1 Tab Tablet 1-2 Tab PO PRN Q6HRS PRN 05/22/20 Reported Naproxen 500 Mg Tablet. 1 Tab PO PRN 1-2XD PRN 05/22/20 Reported Amlodipine Besylate 5 Mg Tablet 5 Mg PO DAILY 05/22/20 Reported Lisinopril 40 Mg Tablet 40 Mg PO DAILY 05/22/20 Reported Impression . IMPRESSION: 1. Acute pulmonary embolism and right lower extremity deep vein thrombosis secondary to immobilization from recent left knee arthroscopic surgery. She has no known cancers and her obesity is another risk factor. Her mother had pulmonary embolism and DVT at an advanced age. She is hemodynamically stable. 2. Right lower lobe pulmonary infarction. Clinically, no signs of pneumonia. 3. Underlying morbid obesity. 4. No significant tobacco history. Plan . RECOMMENDATIONS: She passed 6 min walk test Will repeat venous Dopplers and CTA chest in 6 weeks. Continue Elidebbi, for 3- 6 months 6-minute walk test at the time of discharge. The patient has indicated a week from now she is scheduled to go somewhere in [place] for 3-[place] drive. I have instructed her that as long as she takes a break every hour and stretches herself and remains on Eliquis she should be safe. Discussed with RN. ambulate ok with dc home f/u with me in jul with CTA chest/ dopplers prior YOLANDA RECIO MD Jun 04, 2020 10:28
[2020-06-04 10:34] VITALS: BP 107/65
--- NOTE | 2020-06-04 10:36 | CARD ---
MR#: [id number] Date of Study: 06/03/2020 Ordering Physician: LIDIA GUIDO, Referring Physician: LIDIA GUIDO, Tech: Rasheeda Garrison APPROVED REPORT EXAM: Two-dimensional and M-mode echocardiogram with Doppler and color Doppler. Other Information Quality : AverageHR: 77bpm INDICATION Pulmonary Embolism 2D DIMENSIONS Left Atrium(2D)3.4 (1.6-4.0cm)IVSd1.0 (0.7-1.1cm) Aortic Root(2D)3.0 (2.0-3.7cm)LVDd4.9 (3.9-5.9cm) LVOT Diameter2.0 (1.8-2.4cm)PWd1.3 (0.7-1.1cm) LVDs3.7 (2.5-4.0cm)FS (%) 23.6 % SV52.3 mlLVEF(%)47.0 (>50%) Aortic Valve AoV Peak Marcus.129.9cm/sAoV VTI26.4cm AO Peak GR.6.8mmHgLVOT VTI 17.86cm AO Mean GR.5mmHg Mitral Valve MV E Ypjlyrib32.9cm/sMV E Peak Gr.3mmHg MV DECEL [id number] A Eaoouzur62.2cm/s MV E Mean Gr.2mmHgE/A Ratio1.2 TDI Lateral E' P. V8.97cm/sMedial E' P. V9.37cm/s E/Lateral E'7.7E/Medial E'7.4 Tricuspid Valve TR P. [id number] [id number] TR Peak Gr.[id number] LEFT VENTRICLE The left ventricle is normal size. There is borderline to mild concentric left ventricular hypertroph y. The left ventricular systolic function is normal. The Ejection Fraction is 55%. There is normal LV segmental wall motion. RIGHT VENTRICLE The right ventricle is mildly dilated. There is normal right ventricular wall thickness. The right ve ntricular systolic function is normal. ATRIA The left atrium size is normal. The right atrium size is normal. The interatrial septum is intact wit h no evidence for an atrial septal defect or patent foramen ovale as noted on 2-D or Doppler imaging. AORTIC VALVE The aortic valve is thickened but opens well. Doppler and Color Flow revealed no significant aortic r egurgitation. There is no significant aortic valvular stenosis. Calculated aortic valve area is 2.17 cm2 with maximum pressure gradient of 9 mmHg and mean pressure gradient of 5 mmHg. MITRAL VALVE The mitral valve is normal in structure and function. There is no evidence of mitral valve prolapse. There is no mitral valve stenosis. Doppler and Color Flow revealed no mitral valve regurgitation note d. TRICUSPID VALVE The tricuspid valve is normal in structure and function. Doppler and Color Flow revealed trace tricus pid regurgitation with an estimated PAP of 35 mmHg. There is no tricuspid valve stenosis. PULMONIC VALVE The pulmonic valve is not well visualized. Doppler and Color Flow revealed trace pulmonic valvular re gurgitation. GREAT VESSELS The aortic root is normal in size. The ascending aorta is Mildly dilated. The IVC is normal in size a nd collapses >50% with inspiration. PERICARDIAL EFFUSION There is no evidence of significant pericardial effusion. Critical Notification Critical Value: No <Conclusion> The left ventricular systolic function is normal. The Ejection Fraction is 55%. There is normal LV segmental wall motion. Trace tricuspid regurgitation with an estimated PAP of 35 mmHg. There is no evidence of significant pericardial effusion. Signed by : Dayday Nolan, Electronically Approved : 06/04/2020 10:36:12
[2020-06-04] MEDS ORDERED: APIX5TAB PO (12:55)
--- NOTE | 2020-06-04 13:02 | PDOC ---
PROGRESS NOTES Date of Service: DATE: 06/04/20 TIME: 12:56 Chief Complaint Chief Complaint Shortness of breath History of Present Illness History of Present Illness Patient is breathing well on room air. She still intends to take a road trip weekend the weekend after discharge. Discussed frequent walking breaks if she does intend to proceed with this roadtrip. Discussed how to take medication, and recommended close PCP follow-up. Vitals Vitals Vital Signs Date Time Temp Pulse Resp B/P (MAP) Pulse Ox O2 Delivery O2 Flow Rate FiO2 06/04/20 10:34 98.1 93 18 107/65 (79) 93 Room Air 98.1 06/04/20 07:35 2.0 Physical Exam General: Alert, Oriented X3, Cooperative, No acute distress Heart: Regular rate, Normal S1, Normal S2 Lungs: Crackles Extremities: No clubbing, No cyanosis, Normal pulses Skin: No rashes Review of Systems Review of Systems Denies shortness of breath, denies chest pain, denies hemoptysis. Assessment and Plan Assessmemt and Plan Bilateral pulmonary embolism Plan: Patient currently breathing comfortably on room air. Can discharge her with Eliquis 10 mg twice daily for total of 7 days, followed by 5 mg twice daily for 3 monthsl. Discussed regular ambulation. Greater than 30 minutes was spent in the management of this patient's discharge. Comment Review of Relevant I have reviewed the following items kodak (where applicable) has been applied. Labs Laboratory Tests Test 06/02/20 14:35 06/03/20 04:10 Sodium Level 140 mmol/L (136-145) 139 mmol/L (136-145) Potassium Level 3.9 mmol/L (3.5-5.1) 3.7 mmol/L (3.5-5.1) Chloride Level 104 mmol/L (98-107) 103 mmol/L (98-107) Carbon Dioxide Level 27 mmol/L (21-32) 28 mmol/L (21-32) Anion Gap 9 (6-14) 8 (6-14) Blood Urea Nitrogen 15 mg/dL (7-20) 13 mg/dL (7-20) Creatinine 0.9 mg/dL (0.6-1.0) 0.9 mg/dL (0.6-1.0) Estimated GFR (Cockcroft-Gault) 63.4 63.4 Glucose Level 108 mg/dL (70-99) 92 mg/dL (70-99) Calcium Level 9.0 mg/dL (8.5-10.1) 8.8 mg/dL (8.5-10.1) Magnesium Level 2.1 mg/dL (1.8-2.4) White Blood Count 10.3 x10^3/uL (4.0-11.0) Red Blood Count 3.36 x10^6/uL (3.50-5.40) Hemoglobin 10.6 g/dL (12.0-15.5) Hematocrit 31.2 % (36.0-47.0) Mean Corpuscular Volume 93 fL (79-100) Mean Corpuscular Hemoglobin 32 pg (25-35) Mean Corpuscular Hemoglobin Concent 34 g/dL (31-37) Red Cell Distribution Width 13.4 % (11.5-14.5) Platelet Count 271 x10^3/uL (140-400) Neutrophils (%) (Auto) 67 % (31-73) Lymphocytes (%) (Auto) 19 % (24-48) Monocytes (%) (Auto) 12 % (0-9) Eosinophils (%) (Auto) 1 % (0-3) Basophils (%) (Auto) 0 % (0-3) Neutrophils # (Auto) 6.9 x10^3/uL (1.8-7.7) Lymphocytes # (Auto) 2.0 x10^3/uL (1.0-4.8) Monocytes # (Auto) 1.2 x10^3/uL (0.0-1.1) Eosinophils # (Auto) 0.1 x10^3/uL (0.0-0.7) Basophils # (Auto) 0.0 x10^3/uL (0.0-0.2) Medications Current Medications Ondansetron HCl (Zofran) 4 mg PRN Q4HRS PRN IV NAUSEA/VOMITING; Start 06/02/20 at 08:15 Zolpidem Tartrate (Ambien) 5 mg PRN QHS PRN PO INSOMNIA; Start 06/02/20 at 08:15 Acetaminophen (Tylenol) 650 mg PRN Q4HRS PRN PO TEMP OVER 100.4F OR MILD PAIN; Start 06/02/20 at 08:15 Al Hydroxide/Mg Hydroxide (Mylanta Plus Xs) 30 ml PRN DAILY PRN PO HEARTBURN / GAS; Start 06/02/20 at 08:15 Diphenhydramine HCl (Benadryl) 25 mg PRN Q4HRS PRN IVP ITCHING; Start 06/02/20 at 08:15 Docusate Sodium (Colace) 100 mg PRN BID PRN PO HARD STOOLS Last administered on 06/04/20at 08:26; Start 06/02/20 at 08:15 Albuterol Sulfate (Ventolin Neb Soln) 2.5 mg PRN Q4HRS PRN NEB SHORTNESS OF BREATH Last administered on 06/02/20at 12:36; Start 06/02/20 at 08:15 Guaifenesin (Robitussin) 200 mg PRN Q4HRS PRN PO COUGH; Start 06/02/20 at 08:15 Lorazepam (Ativan) 0.5 mg PRN Q4HRS PRN PO ANXIETY / AGITATION; Start 06/02/20 at 08:15 Hydromorphone HCl (Dilaudid) 1 mg PRN Q2HRS PRN IV SEVERE PAIN 7-10 Last administered on 06/02/20at 18:27; Start 06/02/20 at 08:15 Enoxaparin Sodium (Lovenox 100mg Syringe) 100 mg Q12HR SQ Last administered on 06/02/20at 08:36; Start 06/02/20 at 09:00; Stop 06/02/20 at 10:43; Status DC Amlodipine Besylate (Norvasc) 5 mg DAILY PO Last administered on 06/04/20at 08:27; Start 06/02/20 at 09:00 Aspirin (Zara Aspirin) 325 mg DAILY PO Last administered on 06/03/20at 08:20; Start 06/02/20 at 09:00; Stop 06/03/20 at 17:00; Status DC Acetaminophen/ Hydrocodone Bitart (Lortab 7.5/325) 1 tab PRN Q6HRS PRN PO MODERATE PAIN Last administered on 06/03/20at 20:47; Start 06/02/20 at 08:15 Lisinopril (Prinivil) 40 mg DAILY PO Last administered on 06/04/20at 08:26; Start 06/02/20 at 09:00 Naproxen (Naprosyn) 500 mg PRN BID PRN PO INFLAMMATION; Start 06/02/20 at 08:30 Promethazine HCl (Phenergan) 25 mg PRN Q6HRS PRN PO NAUSEA/VOMITING; Start 06/02/20 at 08:30 Apixaban (Eliquis) 10 mg BID PO Last administered on 06/04/20at 08:26; Start 06/03/20 at 09:00; Stop 06/09/20 at 21:01 Apixaban (Eliquis) 5 mg BID PO ; Start 06/10/20 at 09:00 Info (Anti-Coagulation Monitoring By Pharmacy) 1 each PRN DAILY PRN MC SEE COMMENTS Last administered on 06/03/20at 11:37; Start 06/02/20 at 11:00 Polyethylene Glycol (miraLAX PACKET) 17 gm PRN BID PRN PO CONSTIPATION; Start 06/04/20 at 09:30 Active Scripts Active Eliquis (Apixaban) 5 Mg Tablet 5 Mg PO BID 90 Days Begin 5 mg bid starting 06/10/2020. Continue treatment for 3 months. Eliquis (Apixaban) 5 Mg Tablet 10 Mg PO BID 6 Days Reported Aspirin 325 Mg Tablet 1 Tab PO DAILY 30 Days Promethazine Hcl 25 Mg Tablet 1 Tab PO PRN Q6HRS 2 Days Hydrocodone-Apap 7.5-325 (Hydrocodone Bit/Acetaminophen) 1 Tab Tablet 1-2 Tab PO PRN Q6HRS PRN Naproxen 500 Mg Tablet. 1 Tab PO PRN 1-2XD PRN Amlodipine Besylate 5 Mg Tablet 5 Mg PO DAILY Lisinopril 40 Mg Tablet 40 Mg PO DAILY Vitals/I & O Vital Sign - Last 24 Hours 06/03/20 06/03/20 06/03/20 06/03/20 15:00 19:00 20:00 20:47 Temp 98.2 97.9 98.2 97.9 Pulse 80 84 Resp 20 18 B/P (MAP) 112/67 (82) 129/80 (96) Pulse Ox 94 94 94 O2 Delivery Nasal Cannula Nasal Cannula Room Air Room Air O2 Flow Rate 2.0 2.0 06/03/20 06/03/20 06/04/20 06/04/20 21:47 22:49 02:46 07:00 Temp 98.4 98.4 98.3 98.4 98.4 98.3 Pulse 80 87 86 Resp 19 18 18 B/P (MAP) 115/77 (90) 127/81 (96) 152/85 (107) Pulse Ox 92 94 93 O2 Delivery Room Air Room Air Room Air Room Air 06/04/20 06/04/20 06/04/20 06/04/20 07:35 08:26 08:27 10:34 Temp 98.1 98.1 Pulse 86 86 93 Resp 18 B/P (MAP) 152/85 152/85 107/65 (79) Pulse Ox 93 O2 Delivery Nasal Cannula Room Air O2 Flow Rate 2.0 Intake and Output 06/03/20 06/03/20 06/04/20 15:00 23:00 07:00 Intake Total 525 ml 400 ml 500 ml Output Total 350 ml Balance 525 ml 400 ml 150 ml Justicifation of Admission Dx: Justifications for Admission: Justification of Admission Dx: Yes MARCELLUS BLACKMON MD Jun 04, 2020 13:02
--- NOTE | 2020-06-04 13:16 | PDOC3 ---
Discharge Summary Visit Information Date of Admission: Jun 02, 2020 Date of Discharge: Jun 04, 2020 Admitting Diagnosis Comment: Bilateral pulmonary embolism Final Diagnosis Bilateral pulmonary embolism Brief Hospital Course Allergies Allergies Coded Allergies Type Severity Reaction Last Updated Verified No Known Drug Allergies 05/22/20 No Vital Signs Vital Signs Date Time Temp Pulse Resp B/P (MAP) Pulse Ox O2 Delivery O2 Flow Rate FiO2 06/04/20 10:34 98.1 93 18 107/65 (79) 93 Room Air 98.1 06/04/20 07:35 2.0 Lab Results Laboratory Tests Test 06/02/20 14:35 06/03/20 04:10 Sodium Level 140 mmol/L (136-145) 139 mmol/L (136-145) Potassium Level 3.9 mmol/L (3.5-5.1) 3.7 mmol/L (3.5-5.1) Chloride Level 104 mmol/L (98-107) 103 mmol/L (98-107) Carbon Dioxide Level 27 mmol/L (21-32) 28 mmol/L (21-32) Anion Gap 9 (6-14) 8 (6-14) Blood Urea Nitrogen 15 mg/dL (7-20) 13 mg/dL (7-20) Creatinine 0.9 mg/dL (0.6-1.0) 0.9 mg/dL (0.6-1.0) Estimated GFR (Cockcroft-Gault) 63.4 63.4 Glucose Level 108 mg/dL (70-99) 92 mg/dL (70-99) Calcium Level 9.0 mg/dL (8.5-10.1) 8.8 mg/dL (8.5-10.1) Magnesium Level 2.1 mg/dL (1.8-2.4) White Blood Count 10.3 x10^3/uL (4.0-11.0) Red Blood Count 3.36 x10^6/uL (3.50-5.40) Hemoglobin 10.6 g/dL (12.0-15.5) Hematocrit 31.2 % (36.0-47.0) Mean Corpuscular Volume 93 fL (79-100) Mean Corpuscular Hemoglobin 32 pg (25-35) Mean Corpuscular Hemoglobin Concent 34 g/dL (31-37) Red Cell Distribution Width 13.4 % (11.5-14.5) Platelet Count 271 x10^3/uL (140-400) Neutrophils (%) (Auto) 67 % (31-73) Lymphocytes (%) (Auto) 19 % (24-48) Monocytes (%) (Auto) 12 % (0-9) Eosinophils (%) (Auto) 1 % (0-3) Basophils (%) (Auto) 0 % (0-3) Neutrophils # (Auto) 6.9 x10^3/uL (1.8-7.7) Lymphocytes # (Auto) 2.0 x10^3/uL (1.0-4.8) Monocytes # (Auto) 1.2 x10^3/uL (0.0-1.1) Eosinophils # (Auto) 0.1 x10^3/uL (0.0-0.7) Basophils # (Auto) 0.0 x10^3/uL (0.0-0.2) Brief Hospital Course Ms. Gallegos is a 64 old female with history of essential hypertension, obesity, who apparently suffered a meniscal tear which was operated. She had a left knee arthroscopy with medial and lateral meniscectomy. This was on May 22, 2020. After her operation patient presented with right-sided chest pain, which prompted consultation with the local emergency department. She was evaluated and found to have bilateral pulmonary emboli and sent to our institution for further treatment. Consultations were placed to pulmonology. Patient was recommended Eliquis for a period of 3 to 6 months. She passed her 6-minute walk test, and was breathing comfortably on room air on the date of discharge. Assessment Assessment Bilateral pulmonary embolism Discharge Information Condition at Discharge: Improved Follow Up: Weeks Disposition/Orders: D/C to Home Scheduled Amlodipine Besylate (Amlodipine Besylate) 5 Mg Tablet, 5 MG PO DAILY for htn, (Reported) Entered as Reported by: KOREY MCGRAW on 05/22/20918 Last Action: Continued on 06/02/20 0816 by LIDIA GUIDO MD Apixaban (Eliquis) 5 Mg Tablet, 10 MG PO BID for Pulmonary Embolism for 6 Days, #22 Prescribed by: MARCELLUS BLACKMON MD on 06/04/20 1255 Apixaban (Eliquis) 5 Mg Tablet, 5 MG PO BID for Bilateral PE for 90 Days, #180 Begin 5 mg bid starting 06/10/2020. Continue treatment for 3 months. Prescribed by: MARCELLUS BLACKMON MD on 06/04/20 1255 Aspirin (Aspirin) 325 Mg Tablet, 1 TAB PO DAILY for prevent clots for 30 Days, #30 Ref 5 (Reported) Entered as Reported by: XIMENA BRANCH RN on 05/22/201124 Last Action: Continued on 06/02/20815 by LIDIA GUIDO MD Lisinopril (Lisinopril) 40 Mg Tablet, 40 MG PO DAILY for FOR HYPERTENSION, #30 Ref 0 (Reported) Entered as Reported by: KOREY MCGRAW on 05/22/20917 Last Action: Continued on 06/02/20815 by LIDIA GUIDO MD Promethazine Hcl (Promethazine Hcl) 25 Mg Tablet, 1 TAB PO PRN Q6HRS for nausea for 2 Days, #20 (Reported) Entered as Reported by: XIMENA BRANCH RN on 05/22/201122 Last Action: Converted on 06/02/20815 by LIDIA GUIDO MD Scheduled PRN Hydrocodone Bit/Acetaminophen (Hydrocodone-Apap 7.5-325 ) 1 Tab Tablet, 1-2 TAB PO PRN Q6HRS PRN for PAIN, #42 Ref 0 (Reported) Entered as Reported by: XIMENA BRANCH RN on 05/22/201119 Last Action: Continued on 06/02/20815 by LIDIA GUIDO MD Naproxen (Naproxen) 500 Mg Tablet.dr, 1 TAB PO PRN 1-2XD PRN for PAIN, #60 ( Reported) Entered as Reported by: KOREY MCGRAW on 05/22/20918 Last Action: Converted on 06/02/20815 by LIDIA GUIDO MD Justicifation of Admission Dx: Justifications for Admission: Justification of Admission Dx: Yes MARCELLUS BLACKMON MD Jun 04, 2020 13:16
--- NOTE | 2020-06-04 13:49 | NUR ---
SS following up with discharge planning. SS reviewed pt chart and discussed with pt RN. Pt is currently on room air. Six minute walk completed and no oxygen needed. Discharge order for self care on the chart.
--- NOTE | 2020-06-04 14:44 | NUR ---
Discharge Note: KISHA CHAN [address] Discharge instructions and discharge home medications reviewed with Patient and a copy given. All questions have been answered and understanding verbalized. The following instructions and handouts were given: dvt & PE Discontinued IV lines Patient discharged to home with self care via private vehicle
[2020-06-10] MEDS ORDERED: APIXABAN 5 MG TABLET. PO SCH (09:00)
== END 2020-06-04 14:40 | disposition home or self-care (01) | DRG 299 ==
LOC: 1 WEST ICU 06:50 → 2 SOUTH 18:08
PROVIDERS: ADMIT Internal Medicine; ATTEND Internal Medicine
DX: I82.401 Acute embolism and thrombosis of unspecified deep veins of right lower extremity (principal); I26.99 Other pulmonary embolism without acute cor pulmonale; J90 Pleural effusion, not elsewhere classified; E66.01 Morbid (severe) obesity due to excess calories; I10 Essential (primary) hypertension; Z68.39 Body mass index [BMI] 39.0-39.9, adult
CPT/HCPCS: 36415; 80048; 83735; 85025; 93306; 94618; 94640; J1170; J1650; G0378; J7613

== ENCOUNTER → 2020-09-18 | Outpatient (CLI) | payer BC ==
[~2020-09-18] MED LIST changes: +AMLO-186 PO; -AMLO5TAB10 PO; +APIX5TAB PO
--- NOTE | 2020-09-18 13:33 | RAD ---
INDICATION: Reason: PRIOR DVT / Spl. Instructions: / History: COMPARISON: June 01, 2020 TECHNIQUE: Grayscale, color and doppler ultrasound images were obtained of the right lower extremity venous vasculature. RIGHT: No thrombus identified in the common femoral vein, femoral vein, popliteal vein. Edema as well as ove rlying soft tissues limit evaluation of calf vessels. IMPRESSION: * No thrombus from the common femoral through the popliteal vein. * Limited assessment of the calf vessels secondary to overlying soft tissues obscuring. There is ursula e vascular flow seen within the peroneal veins but portions do not have definite vascular flow theref ore thrombus of a portion of the peroneal veins may still be present however limited assessment. Electronically signed by: Gary Mccollum MD (09/18/2020 10:03 AM) [id number]
== END ==
LOC: US 10:57
PROVIDERS: ATTEND Internal Medicine Critical Care Medicine
DX: I82.491 Acute embolism and thrombosis of other specified deep vein of right lower extremity (principal); R22.42 Localized swelling, mass and lump, left lower limb; M79.89 Other specified soft tissue disorders
CPT/HCPCS: 93971